=== PATIENT | male | born 1980 | race African-American/Black ===

== ENCOUNTER 2020-11-28 13:14 | Outpatient (CLI) | payer OTHER | END 2020-11-28 21:59 | disposition home or self-care (01) | LOC: INF 13:14 | PROVIDERS: ATTEND Internal Medicine | DX: Z23 Encounter for immunization (principal) | CPT/HCPCS: 96372 ==

== ENCOUNTER 2020-12-19 08:03 | Outpatient (CLI) | payer OTHER | END 2020-12-19 20:22 | disposition home or self-care (01) | LOC: INF 08:03 | PROVIDERS: ATTEND Internal Medicine | DX: Z23 Encounter for immunization (principal) | CPT/HCPCS: 96372 ==

== ENCOUNTER 2021-10-20 08:33 | Emergency (ER) | payer OTHER ==
[~2021-10-20] VITALS: Ht 175.3 cm; Wt 83.9 kg
[2021-10-20 08:33] VITALS: TEMP 97
[2021-10-20 10:15] VITALS: BP 112/78
== END 2021-10-20 10:25 | disposition home or self-care (01) ==
LOC: ED 08:42
DX: M51.36 Other intervertebral disc degeneration, lumbar region (principal); S00.03XA Contusion of scalp, initial encounter; S70.01XA Contusion of right hip, initial encounter; V89.2XXA Person injured in unspecified motor-vehicle accident, traffic, initial encounter; Y92.480 Sidewalk as the place of occurrence of the external cause
CPT/HCPCS: 99283